=== PATIENT | female | born 2000 | race African-American/Black ===

== ENCOUNTER 2024-08-25 18:04 | Emergency (ER) | payer MEDICAID ==
[~2024-08-25] VITALS: Ht 154.9 cm; Wt 58.0 kg
[2024-08-25 18:09] VITALS: O2SAT 98
[2024-08-25 18:25] VITALS: BP 120/73; PULSE 82; RESP 14; TEMP 98.1; O2SAT 100
[2024-08-25 20:22] LABS: CHLORIDE 103 mEq/L (98-107); POTASSIUM 3.9 mEq/L (3.5-5.1); SODIUM 134 mEq/L (136-145)
[2024-08-25 20:23] LABS: BASOPHILS % 0.4 % (0.0-2.0); CALCIUM 9.9 mg/dL (8.7-10.4); CARBON DIOXIDE 25 mEq/L (21-32); EOSINOPHILS % 0.8 % (0.0-5.0); MEAN CORPUSCULAR HEMOGLOBIN 27.8 pg (28.0-32.0); MEAN CORPUSCULAR HGB CONC 32.6 g/dL (31.0-37.0); MEAN CORPUSCULAR VOLUME 85.3 fL (81.0-99.0); MEAN PLATELET VOLUME 7.7 fl (7.4-10.4); MONOCYTES % 6.2 % (2.0-8.0); NEUTROPHILS % 66.6 % (40.0-76.0); PLATELET 283 x1000/uL (130-400); RED BLOOD CELL COUNT 4.33 mill/uL (4.2-5.4); RED CELL DISTRIBUTION WIDTH 14.3 % (11.6-14.6); WHITE BLOOD COUNT 6.8 x1000/uL (4.5-11.0)
[2024-08-25 20:28] LABS: CREATININE 0.9 mg/dL (0.6-1.0); GLUCOSE 93 mg/dL (70-105); UREA NITROGEN BLOOD 15 mg/dL (9-23)
[2024-08-25 20:42] LABS: B-HCG QUANTITATIVE 67505 mIU/mL (<3)
== END 2024-08-25 22:15 | disposition home or self-care (01) ==
LOC: ER 18:04
DX: O26.891 Other specified pregnancy related conditions, first trimester (principal); R10.2 Pelvic and perineal pain; Z3A.01 Less than 8 weeks gestation of pregnancy
CPT/HCPCS: 36415; 76801; 80048; 84702; 85025; 86850; 86900; 99284